=== PATIENT | female | born 1970 | race Caucasian/White ===

== ENCOUNTER 2021-09-19 19:03 | Inpatient (IN) | payer BC ==
[2021-09-19] MEDS ORDERED: Cefepime 2 GM VIAL ONE (19:47)
[2021-09-19 19:53] LABS: #Eosinphils 0.3 10x3/uL (0.0-0.5); #Monocytes 1.1 10x3/uL (0.0-1.1); #Neutrophils 14.7 10x3/uL (1.5-8.4); %Basophils 0.2 % (0.0-2.0); %Eosinophils 1.8 % (0.0-6.0); %Monocytes 6.4 % (0.0-10.0); %Neutrophils 83.9 % (40.0-75.0); Hemoglobin 14.1 g/dL (12.0-15.5); Mean Corpuscular HGB CONC 33.4 g/dL (32.0-36.0); Mean Corpuscular Hemoglobin 28.5 pg (27.0-33.0); Mean Corpuscular Volume 85.4 fl (81.6-98.3); Mean Platelet Volume 11.4 fl (7.4-10.4); Platelet Count 185 10x3/uL (150-450); Red Blood Cell (RBC) Count 4.94 10x6/uL (3.90-5.03); White Blood Cell (WBC) Count 17.6 10x3/uL (3.5-10.5)
[2021-09-19 20:05] LABS: ALT (SGPT) 48 U/L (8-55); AST (SGOT) 36 U/L (5-34); Albumin 4.2 g/dL (3.5-5.0); Alkaline Phosphatase 97 U/L (40-110); Anion Gap 16 mmol/L (10-20); BUN (Urea Nitrogen) 15 mg/dL (9.8-20.1); Bilirubin, Total 0.5 mg/dL (0.2-1.2); Calc. Creatinine Clearance 0 mL/min (70-130); Carbon Dioxide 23 mmol/L (22-29); Chloride 102 mmol/L (98-107); Estimated GFR 81; Globulin 4.1 g/dL (2.4-3.5); Glucose 114 mg/dL (70-105); Magnesium 1.7 mg/dL (1.6-2.6); Potassium 3.8 mmol/L (3.5-5.1); Protein, Total 8.3 g/dL (6.0-8.3); Sodium 137 mmol/L (136-145)
[2021-09-19 20:35] LABS: Bilirubin 1+ (Negative); Blood, Urine 150 (Negative); Clarity Clear (Clear); Glucose, Urine (Dipstick) Normal (Negative); Ketone, Urine 15 mg/dL (Negative); Leukocyte 25 (Negative); Nitrite Negative (Negative); Protein, Urine (Dipstick) 100 mg/dl (Neg-Trace); Specific Gravity, Urine 1.025 (1.002-1.036)
[2021-09-19 20:45] LABS: Bacteria/HPF 4+ HPF (None Seen); Mucous/LPF 3+ LPF (<2+); RBC/HPF 0-3 HPF (0-3); Squamous Epithelial 0-3 HPF (0-3); WBC/HPF 0-3 HPF (0-3)
[2021-09-19] MEDS ORDERED: Acetaminophen 500 MG TAB ONE (22:02)
[2021-09-19] MEDS ORDERED: Ondansetron PF 4 MG/2 ML Vial ONE (22:06)
[2021-09-19] MEDS ORDERED: Lidocaine Viscous Sol 2% 15 ml UD Cup ONE (22:19)
[2021-09-19] MEDS ORDERED: Mag-Al Plus 1200 MG/1200 MG/120 MG/30 ML UDCUP ONE (22:19)
[2021-09-20 00:36] LABS: SARS-CoV-2 NAA Rapid Test Not Detected (NotDetected)
[2021-09-20] MEDS ORDERED: Ondansetron PF 4 MG/2 ML Vial IVP PRN (00:39)
[2021-09-20] MEDS ORDERED: Senokot S 8.6-50 MG TAB PO PRN (00:39)
[2021-09-20] MEDS ORDERED: Calcium Carbonate 500 MG ChewTAB PO PRN (00:39)
[2021-09-20] MEDS ORDERED: Guaifenesin DM 100-10/5 ML UDCUP PO PRN (00:39)
[2021-09-20] MEDS ORDERED: Acetaminophen 325 MG TAB PO PRN (00:39)
[2021-09-20] MEDS ORDERED: Zolpidem Tartrate 5 MG TAB PO PRN (00:39)
[2021-09-20] MEDS: Lactated Ringer's 1,000 ML IV SCH ×3 (01:12→15:57)
[2021-09-20] MEDS: HYDROcodone/Acetaminophen 5/325 mg Tablet PO PRN ×2 (03:44→10:25)
[2021-09-20] MEDS ORDERED: HYDROcodone/Acetaminophen 5/325 mg Tablet ONE ×2 (03:47→07:35)
[2021-09-20 04:02] LABS: #Monocytes 0.9 10x3/uL (0.0-1.1); #Neutrophils 11.8 10x3/uL (1.5-8.4); %Basophils 0.3 % (0.0-2.0); %Eosinophils 0.1 % (0.0-6.0); %Lymphocytes 10.1 % (18.0-47.0); %Monocytes 6.5 % (0.0-10.0); %Neutrophils 82.5 % (40.0-75.0); Hemoglobin 12.7 g/dL (12.0-15.5); Mean Corpuscular Hemoglobin 28.7 pg (27.0-33.0); Mean Corpuscular Volume 86.9 fl (81.6-98.3); Mean Platelet Volume 11.5 fl (7.4-10.4); Platelet Count 160 10x3/uL (150-450); RBC Distribution Width 19.8 % (11.5-14.5); Red Blood Cell (RBC) Count 4.43 10x6/uL (3.90-5.03); White Blood Cell (WBC) Count 14.3 10x3/uL (3.5-10.5)
[2021-09-20 04:12] LABS: Anion Gap 13 mmol/L (10-20); BUN (Urea Nitrogen) 12 mg/dL (9.8-20.1); Calc. Creatinine Clearance 0 mL/min (70-130); Calcium 9.6 mg/dL (7.8-10.44); Carbon Dioxide 24 mmol/L (22-29); Chloride 107 mmol/L (98-107); Estimated GFR 105; Glucose 101 mg/dL (70-105); Potassium 3.8 mmol/L (3.5-5.1); Sodium 140 mmol/L (136-145)
[2021-09-20] MEDS ORDERED: Multivitamin W/ Minerals 1 TAB ONE (07:33)
[2021-09-20] MEDS ORDERED: Enoxaparin Sodium 40 MG/0.4 ML SYRINGE ONE (07:33)
[2021-09-20] MEDS ORDERED: cefTRIAXone\\ROCEPHIN 2 GM VIAL ONE (07:34)
[2021-09-20 07:35] VITALS: BMI 41.8
[2021-09-20] MEDS: Cyanocobalamin (Vitamin B-12) 1,000 MCG TAB PO SCH ×2 (08:00→20:11)
[2021-09-20] MEDS: cefTRIAXone\\ROCEPHIN 2 GM in Sodium Chloride 0.9% 100 ML IVPB SCH (08:00)
[2021-09-20] MEDS: LACTINEX 1 TAB PO SCH ×2 (08:00→20:11)
[2021-09-20] MEDS: Multivitamin W/ Minerals 1 TAB PO SCH (08:00)
[2021-09-20] MEDS ORDERED: Vancomycin 1 GM in Premix Bag 1 BAG IVPB SCH (09:00)
[2021-09-20] MEDS ORDERED: LUTEIN 20 MG PO SCH (09:00)
[2021-09-20] MEDS: Vancomycin HCl 1.5 GM, Admixture Fee 1 EACH in Sodium Chloride 0.9% 500 ML IVPB SCH ×2 (09:00→20:10)
[2021-09-20] MEDS: Enoxaparin Sodium 40 MG/0.4 ML SYRINGE SC SCH (09:00)
[2021-09-20] MEDS: Morphine 2 MG/ML VIAL SLOW IVP PRN ×2 (13:00→18:26)
[2021-09-20] MEDS ORDERED: diphenhydrAMINE 25 MG CAP PO SCH (14:00)
[2021-09-20] MEDS: diphenhydrAMINE 25 MG CAP PO SCH (20:11)
[2021-09-20] MEDS: tiZANidine HCl 4 MG TAB PO SCH (20:11)
[2021-09-21] MEDS: Morphine 2 MG/ML VIAL SLOW IVP PRN ×3 (00:07→07:35)
[2021-09-21 04:28] LABS: #Basophils 0.1 10x3/uL (0.0-0.2); #Eosinphils 0.1 10x3/uL (0.0-0.5); #Monocytes 0.8 10x3/uL (0.0-1.1); #Neutrophils 6.4 10x3/uL (1.5-8.4); %Basophils 0.6 % (0.0-2.0); %Eosinophils 1.5 % (0.0-6.0); %Lymphocytes 14.2 % (18.0-47.0); %Monocytes 9.6 % (0.0-10.0); %Neutrophils 73.6 % (40.0-75.0); Hemoglobin 11.6 g/dL (12.0-15.5); Mean Corpuscular HGB CONC 31.9 g/dL (32.0-36.0); Mean Corpuscular Hemoglobin 28.6 pg (27.0-33.0); Mean Corpuscular Volume 89.9 fl (81.6-98.3); Mean Platelet Volume 12.4 fl (7.4-10.4); Platelet Count 140 10x3/uL (150-450); RBC Distribution Width 19.6 % (11.5-14.5); Red Blood Cell (RBC) Count 4.05 10x6/uL (3.90-5.03); White Blood Cell (WBC) Count 8.7 10x3/uL (3.5-10.5)
[2021-09-21 04:58] LABS: Anion Gap 11 mmol/L (10-20); BUN (Urea Nitrogen) 9 mg/dL (9.8-20.1); Calc. Creatinine Clearance 177 mL/min (70-130); Calcium 9.1 mg/dL (7.8-10.44); Carbon Dioxide 25 mmol/L (22-29); Chloride 106 mmol/L (98-107); Estimated GFR 105; Glucose 95 mg/dL (70-105); Potassium 3.9 mmol/L (3.5-5.1); Sodium 138 mmol/L (136-145)
[2021-09-21] MEDS: Lactated Ringer's 1,000 ML IV SCH (07:31)
[2021-09-21 08:50] LABS: Vancomycin, Trough 15.4 ug/mL
[2021-09-21] MEDS: cefTRIAXone\\ROCEPHIN 2 GM in Sodium Chloride 0.9% 100 ML IVPB SCH (09:37)
[2021-09-21] MEDS: LACTINEX 1 TAB PO SCH ×2 (09:37→21:24)
[2021-09-21] MEDS: Enoxaparin Sodium 40 MG/0.4 ML SYRINGE SC SCH (09:37)
[2021-09-21] MEDS: Cyanocobalamin (Vitamin B-12) 1,000 MCG TAB PO SCH ×2 (09:37→21:24)
[2021-09-21] MEDS: Multivitamin W/ Minerals 1 TAB PO SCH (09:37)
[2021-09-21] MEDS ORDERED: Artificial Tear Sol 15 ML BOT EA EYE PRN (10:16)
[2021-09-21] MEDS: Ketorolac Tromethamine 30 MG/ML VIAL IVP SCH ×3 (11:03→23:51)
[2021-09-21] MEDS: Vancomycin HCl 1.5 GM, Admixture Fee 1 EACH in Sodium Chloride 0.9% 500 ML IVPB SCH ×2 (11:03→23:12)
[2021-09-21] MEDS ORDERED: diphenhydrAMINE 50 MG/ML VIAL IVP SCH (15:00)
[2021-09-21] MEDS: traMADol HCl 50 MG TAB PO PRN (16:54)
[2021-09-21] MEDS: tiZANidine HCl 4 MG TAB PO SCH (21:24)
[2021-09-21] MEDS: CETIRIZINE HCL 10 MG PO SCH (21:25)
[2021-09-21] MEDS ORDERED: Vancomycin HCl 1.5 GM, Admixture Fee 1 EACH in Sodium Chloride 0.9% 500 ML IVPB SCH (23:00)
[2021-09-21] MEDS: diphenhydrAMINE 25 MG CAP PO SCH (23:12)
[2021-09-22] MEDS: Vancomycin HCl 1.5 GM, Admixture Fee 1 EACH in Sodium Chloride 0.9% 500 ML IVPB SCH ×2 (00:06→14:55)
[2021-09-22] MEDS: Ketorolac Tromethamine 30 MG/ML VIAL IVP SCH ×4 (05:08→23:48)
[2021-09-22 06:39] LABS: #Basophils 0.1 10x3/uL (0.0-0.2); #Eosinphils 0.4 10x3/uL (0.0-0.5); #Monocytes 0.8 10x3/uL (0.0-1.1); #Neutrophils 6.1 10x3/uL (1.5-8.4); %Basophils 0.6 % (0.0-2.0); %Lymphocytes 15.4 % (18.0-47.0); %Monocytes 8.7 % (0.0-10.0); %Neutrophils 69.8 % (40.0-75.0); Mean Corpuscular HGB CONC 31.9 g/dL (32.0-36.0); Mean Corpuscular Hemoglobin 28.2 pg (27.0-33.0); Mean Corpuscular Volume 88.5 fl (81.6-98.3); Mean Platelet Volume 12.1 fl (7.4-10.4); Platelet Count 175 10x3/uL (150-450); RBC Distribution Width 19.4 % (11.5-14.5); White Blood Cell (WBC) Count 8.8 10x3/uL (3.5-10.5)
[2021-09-22 06:49] LABS: Anion Gap 11 mmol/L (10-20); BUN (Urea Nitrogen) 7 mg/dL (9.8-20.1); Calc. Creatinine Clearance 194 mL/min (70-130); Carbon Dioxide 26 mmol/L (22-29); Chloride 107 mmol/L (98-107); Estimated GFR 107; Glucose 92 mg/dL (70-105); Potassium 3.3 mmol/L (3.5-5.1); Sodium 141 mmol/L (136-145)
[2021-09-22] MEDS: traMADol HCl 50 MG TAB PO PRN ×2 (09:58→21:49)
[2021-09-22] MEDS: Enoxaparin Sodium 40 MG/0.4 ML SYRINGE SC SCH (10:02)
[2021-09-22] MEDS: Multivitamin W/ Minerals 1 TAB PO SCH (10:03)
[2021-09-22] MEDS: cefTRIAXone\\ROCEPHIN 2 GM in Sodium Chloride 0.9% 100 ML IVPB SCH (10:03)
[2021-09-22] MEDS: LACTINEX 1 TAB PO SCH ×2 (10:03→21:48)
[2021-09-22] MEDS: Cyanocobalamin (Vitamin B-12) 1,000 MCG TAB PO SCH ×2 (10:03→21:49)
[2021-09-22] MEDS: CETIRIZINE HCL 10 MG PO SCH ×2 (10:04→21:50)
[2021-09-22] MEDS ORDERED: diphenhydrAMINE 25 MG CAP PO SCH (12:56)
[2021-09-22] MEDS: tiZANidine HCl 4 MG TAB PO SCH (21:49)
[2021-09-22] MEDS: diphenhydrAMINE 25 MG CAP PO SCH (22:43)
[2021-09-23] MEDS: Vancomycin HCl 1.5 GM, Admixture Fee 1 EACH in Sodium Chloride 0.9% 500 ML IVPB SCH (00:35)
[2021-09-23] MEDS: diphenhydrAMINE 25 MG CAP PO SCH ×2 (00:47)
[2021-09-23 00:58] LABS: Vancomycin, Trough 31.2 ug/mL
[2021-09-23 06:05] LABS: #Basophils 0.1 10x3/uL (0.0-0.2); #Eosinphils 0.5 10x3/uL (0.0-0.5); #Monocytes 0.8 10x3/uL (0.0-1.1); #Neutrophils 6.1 10x3/uL (1.5-8.4); %Basophils 0.5 % (0.0-2.0); %Eosinophils 5.5 % (0.0-6.0); %Lymphocytes 18.5 % (18.0-47.0); %Monocytes 8.3 % (0.0-10.0); %Neutrophils 66.3 % (40.0-75.0); Mean Corpuscular HGB CONC 32.4 g/dL (32.0-36.0); Mean Corpuscular Hemoglobin 28.4 pg (27.0-33.0); Mean Corpuscular Volume 87.6 fl (81.6-98.3); Mean Platelet Volume 11.5 fl (7.4-10.4); Platelet Count 212 10x3/uL (150-450); RBC Distribution Width 18.8 % (11.5-14.5); Red Blood Cell (RBC) Count 3.88 10x6/uL (3.90-5.03); White Blood Cell (WBC) Count 9.2 10x3/uL (3.5-10.5)
[2021-09-23] MEDS: Ketorolac Tromethamine 30 MG/ML VIAL IVP SCH (06:05)
[2021-09-23 06:10] LABS: Anion Gap 13 mmol/L (10-20); BUN (Urea Nitrogen) 6 mg/dL (9.8-20.1); Calc. Creatinine Clearance 180 mL/min (70-130); Calcium 9.1 mg/dL (7.8-10.44); Carbon Dioxide 26 mmol/L (22-29); Chloride 104 mmol/L (98-107); Estimated GFR 105; Glucose 94 mg/dL (70-105); Potassium 3.3 mmol/L (3.5-5.1); Sodium 140 mmol/L (136-145)
[2021-09-23] MEDS: traMADol HCl 50 MG TAB PO PRN (08:34)
[2021-09-23] MEDS: Cyanocobalamin (Vitamin B-12) 1,000 MCG TAB PO SCH (08:34)
[2021-09-23] MEDS: LACTINEX 1 TAB PO SCH (08:34)
[2021-09-23] MEDS: Multivitamin W/ Minerals 1 TAB PO SCH (08:35)
[2021-09-23] MEDS: CETIRIZINE HCL 10 MG PO SCH (08:35)
[2021-09-23] MEDS: cefTRIAXone\\ROCEPHIN 2 GM in Sodium Chloride 0.9% 100 ML IVPB SCH (08:39)
[2021-09-23] MEDS ORDERED: Sulfameth/Trimethoprim DS 800-160mg TAB PO SCH (10:00)
[2021-09-23] MEDS ORDERED: Ketorolac Tromethamine 30 MG/ML VIAL IM PRN (10:30)
[2021-09-23 12:56] VITALS: BP 132/73; TEMP 98.1
[2021-09-23] MEDS ORDERED: Vancomycin HCl 1.5 GM, Admixture Fee 1 EACH in Sodium Chloride 0.9% 500 ML IVPB SCH (13:00)
== END 2021-09-23 11:36 | disposition home or self-care (01) | DRG 872 ==
LOC: CSHERS 19:03 → UNDOADMIN 23:55 → CSHERHOLD 23:55 → CSHTELE 09-20 10:28
PROVIDERS: ADMIT Student in an Organized Health Care Education/Training Program; ATTEND Family Medicine
DX: A41.9 Sepsis, unspecified organism (principal); Z68.41 Body mass index [BMI] 40.0-44.9, adult; L03.115 Cellulitis of right lower limb; N39.0 Urinary tract infection, site not specified; K21.9 Gastro-esophageal reflux disease without esophagitis; D50.9 Iron deficiency anemia, unspecified; G43.909 Migraine, unspecified, not intractable, without status migrainosus; L20.9 Atopic dermatitis, unspecified; E66.01 Morbid (severe) obesity due to excess calories; E83.52 Hypercalcemia; Z20.822 Contact with and (suspected) exposure to COVID-19; E86.0 Dehydration; Z96.1 Presence of intraocular lens; Z98.84 Bariatric surgery status; Z98.890 Other specified postprocedural states; Z98.41 Cataract extraction status, right eye; Z98.42 Cataract extraction status, left eye; Z88.8 Allergy status to other drugs, medicaments and biological substances; Z88.0 Allergy status to penicillin; Z88.1 Allergy status to other antibiotic agents; Z79.899 Other long term (current) drug therapy; Z79.82 Long term (current) use of aspirin
CPT/HCPCS: 36415; 80048; 80053; 80202; 81003; 81015; 83605; 83735; 85025; 87040; 87086; 93005; 93010; 96361; 96365; 96375; J0692; J0696; J1200; J1650; J1885; J2270; J2405; J3370; J3490; J7030; J7120; U0002